=== PATIENT | male | born 1960 | race Caucasian/White ===

== ENCOUNTER 2025-01-21 11:01 | Emergency (ER) | payer MEDICARE, SELFPAY ==
[2025-01-21 11:01] VITALS: BP 157/103; PULSE 68; RESP 14; TEMP 36.2; O2SAT 98; BMI 24.7
--- NOTE | 2025-01-21 11:10 | RAD_ITS ---
PROCEDURE: FINGER(S) MIN 2 VIEWS 01/21/2025 REASON FOR EXAM: INJURY/PAIN TECHNIQUE: FINGER(S) MIN 2 VIEWS FINDINGS: Bones: Comminuted mildly displaced fracture of the distal 4th phalanx Joints: No dislocation Soft tissues: Soft tissue swelling with probable laceration of the 4th digit Other: No radiopaque foreign body. RAD/Finger(s) Min 2 Views IMPRESSION: Comminuted mild displaced fracture of the distal 4th phalanx. Reading Location: [id number]
--- NOTE | 2025-01-21 11:11 | EX.ED.UPPERE ---
HPI History of Present Illness Chief Complaint: Upper Extremity Injury Detail of Chief Complaint: Crush injury right ring finger Informant: patient Occured/Mechanism Mechanism/Context: Yes injury and Yes crush Comment: Left hand dominant Onset/Context/Timing Onset: Hours Context: Sudden Onset Timing: Continuous Quality of Pain: Throbbing Location: Right ring finger Current Severity: Mild Maximum Severity: Moderate Worsened by: Use and palpation Relieved by: Nothing Associated Symptoms Associated Symptoms: Positive for Loss of Funtion (Only because of pain) Narrative Narrative: Patient is a 64-year-old [id number] male. A crush injury to his right ring finger. He avulsed the volar fat pad of that digit. He also states he tore off the nail. He did bring the nail and skin. He has no antibiotic allergies. He denies any other symptoms or complaints. Tetanus Immunization: Unknown Prior similar symptoms: No Recent Illness/Hospitalization: No PFSH PFSH Home Medications ?Medication ?Instructions ?Recorded ?Last Taken ?Type cephalexin 500 mg capsule 500 mg PO Q6 #20 CAPSULES 01/21/25 Unknown Rx Allergy/AdvReac Type Severity Reaction Status Date / Time No Known Allergies Allergy Verified 01/21/25 11:02 Social History (Updated 01/21/25 @ 11:[address] Freddy Silva MD) household members: spouse Smoking Status: Never smoker ROS ROS ED Integumentary Reports other Details: Skin loss of volar surface right ring finger from the DIP joint with avulsion of the nail Neurologic Neurologic: Reports paresthesias; Denies weakness Hematologic/Lymphatic Hematologic/Lymphatic: Denies easy bleeding or easy bruising EXAM Physical Exam Const Vital Signs: 01/21/25 11:01 Temperature 97.1 F L Temperature Source Temporal Pulse Rate 68 Respiratory Rate 14 Blood Pressure 157/103 H Blood Pressure Mean 121 Pulse Ox 98 Oxygen Delivery Method Room Air Positive well nourished and well developed General Appearance ED: well developed and NAD HEENT Reports moist mucous membranes normocephalic and atraumatic Eyes PERRL and EOMs intact bilaterally Resp normal respiratory effort Cardio regular rate and regular rhythm Extremity Negative for normal to inspection Extremity Narrative: Avulsion of tissue and volar fat right ring finger. The nail was removed as well. There is evidence of a stellate nailbed injury. The flexor digitorum superficialis and flexor digitorum profundus are functionally intact. The profundus was visualized. Neuro oriented x3, CN's II-XII intact bilaterally, moves all extremities, no focal motor deficits and No no sensory deficits noted Psych mental status grossly normal Skin Skin Narrative: Described under the extremity portion of the EMR MDM MDM MDM Narrative Medical decision making narrative: Will update tetanus if needed. Patient received 500 mg of cephalexin p.o. X-ray was obtained to determine if there is a fracture and if the fracture displaced or comminuted etc. Will anesthetize digit by digital nerve block. Will clean wound. Will refer to plastics/hand Dr. Darren Barkley Radiography Chest X-Ray - ED: Read by ED Physician (Three-view x-ray of the right ring finger was obtained. There is a comminuted fracture. There is a displaced fracture of the shaft of the distal phalanx and there is also a small avulsion noted on the ulnar side distal to the transverse fracture. This is entirely reviewed interpreted by me at 112) Procedures Other Procedures Procedure(s): Wound care: Patient's digit was anesthetized with 1% lidocaine by digital block. The wound was irrigated with 250 cc of normal saline. There was nothing to suture. Since patient did bring the nail and the nail is intact the nailbed was sutured in place. Bacitracin ointment to the volar surface with nonadhesive dressing and tube gauze dressing. He was referred to hand. Discharge Plan Triage Chief Complaint: Upper Extremity Injury ED Provider: Freddy Silva Dx/Rx/DC Orders Clinical Impression: Open displaced fracture of distal phalanx of right ring finger, Avulsion of nail of right ring finger, Avulsion of skin of finger, Nailbed injury Instructions: ED Fracture, Finger, Open Prescriptions: New cephalexin 500 mg capsule 500 mg PO Q6 Qty: 20 0RF Primary Care Provider: CORAZON SANDY Referrals: CORAZON SANDY [Other] Darren Barkley MD [Med Staff - Active Staff] - As soon as possible Activity Restrictions/Additional Instructions: 1. Keep dressing absolutely clean and dry. 2. Take antibiotics as prescribed until gone 3. If there is any concern for infection prior to seeing Dr. Barkley, return to the emergency department. Print Language: Bengali Disposition Disposition: Home, Self Care
[2025-01-21] MEDS: Lidocaine 1% (20 ml mdv) 20 ML Vial INFILT (11:31)
[2025-01-21 12:01] VITALS: BP 144/98; PULSE 64; RESP 16; O2SAT 99
[2025-01-21 12:39] VITALS: BP 144/98; PULSE 64; RESP 16; TEMP 36.4; O2SAT 99
== END 2025-01-21 12:39 | disposition home or self-care (01) ==
PROVIDERS: Emergency Provider Emergency Medicine; Visit Provider Emergency Medicine
DX: S62.634B Displaced fracture of distal phalanx of right ring finger, initial encounter for open fracture (principal); W23.0XXA Caught, crushed, jammed, or pinched between moving objects, initial encounter
CPT/HCPCS: 11760; 73140; 90471; 90715; 99284